=== PATIENT | male | born 1960 | race Caucasian/White ===

== ENCOUNTER → 2020-03-08 | Outpatient (CLI) | payer MEDICARE, OTHER ==
[~2020-03-08] MED LIST: ARMOUR THYROID60 MG PO; COQ-10100 MG PO; ELIQUIS2.5 MG PO; FINASTERIDE5 MG PO; K-DUR10 MEQ PO; LASIX40 MG PO; LOSARTAN POTAS100 MG PO; LYRICA150 MG PO; MIRTAZAPINE15 MG PO; NORCO 10-325 T1 EACH PO; OXYBUTYNIN CHLOR5 MG PO; PERCOCET 10-321 EACH PO; PROGESTERO50 MG/1 ML PO; PROGESTERONE100 MG PO; TIZANIDINE HCL4 MG PO; ZOLOFT50 MG PO
[2020-03-08 10:30] LABS: BASOPHILS % 0.3 % (0.0-1.0); EOSINOPHILS # (AUTO) 0.1 (0.0-0.4); EOSINOPHILS % 0.7 % (0.0-6.0); HEMATOCRIT 39.8 % (38.2-49.6); HEMOGLOBIN 12.4 g/dL (14.0-18.0); LYMPHOCYTES # (AUTO) 0.8 (1.0-3.2); MEAN CORPUSCULAR HEMOGLOBIN 26.5 pg (28-32); MEAN CORPUSCULAR HGB CONC 31.2 g/dL (31-35); MONOCYTES # (AUTO) 0.8 (0.2-0.8); MONOCYTES % 6.5 % (4.4-11.3); NEUTROPHILS # (AUTO) 10.3 (2.1-6.9); NEUTROPHILS % 85.3 % (38.7-80.0); PLATELET COUNT 210 x10e3/uL (140-360); RED BLOOD COUNT 4.68 x10e6/uL (4.3-5.7); RED CELL DISTRIBUTION WIDTH 15.9 % (11.7-14.4)
[2020-03-08 10:46] LABS: ANION GAP 10.2 mmol/L (8-16); BLOOD UREA NITROGEN 11 mg/dL (7-26); BUN/CREATININE RATIO 14 (6-25); CALCIUM 8.4 mg/dL (8.4-10.2); CARBON DIOXIDE 27 mmol/L (22-29); CHLORIDE 107 mmol/L (98-107); CREATININE, SERUM 0.78 mg/dL (0.72-1.25); EST GLOMERULAR FILTRATION RATE > 60 ML/MIN (60-); GLUCOSE 104 mg/dL (74-118); POTASSIUM 4.2 mmol/L (3.5-5.1); SODIUM 140 mmol/L (136-145)
== END ==
LOC: DX 15:56 → EDSTATUS 03-12 07:00
PROVIDERS: ATTEND Urology
DX: U07.1 COVID-19 (principal); Z01.818 Encounter for other preprocedural examination; R33.9 Retention of urine, unspecified
CPT/HCPCS: 36415; 80048; 85025; 93005; U0002

== ENCOUNTER 2020-05-09 09:08 | Observation (INO) | payer MEDICARE, OTHER ==
[~2020-05-09] VITALS: Ht 182.9 cm; Wt 91.6 kg
[~2020-05-09 09:08] MED LIST changes: -ARMOUR THYROID60 MG PO; -COQ-10100 MG PO; -FINASTERIDE5 MG PO; -K-DUR10 MEQ PO; -LASIX40 MG PO; -MIRTAZAPINE15 MG PO; -OXYBUTYNIN CHLOR5 MG PO
[2020-05-09] MEDS ORDERED: PIPERACILLIN/TAZOBAC 3.375 GM VIAL ONE (10:26)
[2020-05-09] MEDS ORDERED: GENTAMICIN 80MG/NS 100 ML 200 ML IV ONE (10:26)
[2020-05-09] MEDS ORDERED: SODIUM CHLORIDE 0.9% 50ML 50 ML ONE (10:27)
[2020-05-09] MEDS ORDERED: FINASTERIDE5 MG PO (10:32)
[2020-05-09] MEDS ORDERED: COQ-10100 MG PO (10:32)
[2020-05-09] MEDS ORDERED: OXYBUTYNIN CHLOR5 MG PO (10:32)
[2020-05-09] MEDS ORDERED: LASIX40 MG PO (10:32)
[2020-05-09] MEDS ORDERED: K-DUR10 MEQ PO (10:32)
[2020-05-09] MEDS ORDERED: MIRTAZAPINE15 MG PO (10:32)
[2020-05-09] MEDS ORDERED: ARMOUR THYROID60 MG PO (10:32)
[2020-05-09 10:47] LABS: BASOPHILS % 0.4 % (0.0-1.0); EOSINOPHILS # (AUTO) 0.2 (0.0-0.4); EOSINOPHILS % 3.1 % (0.0-6.0); HEMATOCRIT 38.9 % (38.2-49.6); HEMOGLOBIN 12.3 g/dL (14.0-18.0); LYMPHOCYTES # (AUTO) 1.3 (1.0-3.2); LYMPHOCYTES % 19.5 % (18.0-39.1); MEAN CORPUSCULAR HEMOGLOBIN 27.1 pg (28-32); MEAN CORPUSCULAR HGB CONC 31.6 g/dL (31-35); MEAN CORPUSCULAR VOLUME 85.7 fL (81-99); MONOCYTES # (AUTO) 0.4 (0.2-0.8); MONOCYTES % 6.3 % (4.4-11.3); NEUTROPHILS # (AUTO) 4.7 (2.1-6.9); NEUTROPHILS % 70.6 % (38.7-80.0); PLATELET COUNT 229 x10e3/uL (140-360); RED BLOOD COUNT 4.54 x10e6/uL (4.3-5.7); RED CELL DISTRIBUTION WIDTH 15.8 % (11.7-14.4)
[2020-05-09] MEDS ORDERED: B&O 60MG R/S 60 MG SUPP PR ONE (11:00)
[2020-05-09] MEDS ORDERED: BUPIVACAINE HCL 0.5% INJ 30 ML VIAL INJ ONE (11:00)
[2020-05-09] MEDS ORDERED: LIDOCAINE 2%/ EPINEPHRINE 20ML MDV ONE (11:00)
[2020-05-09] MEDS ORDERED: IOPAMIDOL 300MG/ML 50ML INFUS..BTL IV ONE (11:01)
[2020-05-09 11:06] LABS: ANION GAP 12.6 mmol/L (8-16); BLOOD UREA NITROGEN 10 mg/dL (7-26); BUN/CREATININE RATIO 15 (6-25); CALCIUM 8.8 mg/dL (8.4-10.2); CARBON DIOXIDE 29 mmol/L (22-29); CHLORIDE 104 mmol/L (98-107); CREATININE, SERUM 0.66 mg/dL (0.72-1.25); EST GLOMERULAR FILTRATION RATE > 60 ML/MIN (60-); GLUCOSE 97 mg/dL (74-118); POTASSIUM 3.6 mmol/L (3.5-5.1); SODIUM 142 mmol/L (136-145)
[2020-05-09] MEDS ORDERED: ONDANSETRON HCL INJ 2MG/ML 2ML 2 MG/ML VIAL ONE (12:42)
[2020-05-09] MEDS ORDERED: ROCURONIUM BROMIDE 10 MG/ML 5ML VIAL IV ONE (12:42)
[2020-05-09] MEDS ORDERED: SEVOFLURANE INHAL SOLN 250 ML PEN BTL ONE (12:42)
[2020-05-09] MEDS ORDERED: PROPOFOL IV EMULSION 10 MG/ML 20 ML VIAL ONE (12:42)
[2020-05-09] MEDS ORDERED: LIDOCAINE HCL 2% LOCAL INJ 5 ML SDV VIAL INJ ONE (12:42)
[2020-05-09] MEDS ORDERED: PHENYLEPHRINE HCL 1% 10 MG/ML VIAL ONE (12:42)
[2020-05-09] MEDS ORDERED: FENTANYL CITRATE/PF 100MCG/2 ML INJ ONE (12:56)
[2020-05-09] MEDS ORDERED: MIDAZOLAM HCL 2 MG/2 ML VIAL ONE (12:56)
[2020-05-09] MEDS ORDERED: ACETAMINOPHEN 325 MG TAB ONE (15:36)
[2020-05-09 17:52] VITALS: BP 118/73
[2020-05-09 17:57] VITALS: BP 118/73
[2020-05-09 20:12] VITALS: BP_SYST 107; BP_SYST 114; BP_DIAS 70; BP_DIAS 82
[2020-05-09 21:00] VITALS: BP 114/70
[2020-05-09] MEDS ORDERED: HYDROMORPHONE 1MG/1ML INJ IV STA (22:47)
[2020-05-09] MEDS ORDERED: OXYCODONE/ACETAMINOPHEN 5-325 1 EACH TABLET PO PRN (23:00)
[2020-05-09] MEDS ORDERED: ACETAMINOPHEN 325 MG TAB PO PRN (23:00)
[2020-05-09] MEDS ORDERED: OXYCODONE HCL IR 5 MG TAB PO PRN (23:15)
[2020-05-10] VITALS (7 sets, daily range): BP systolic 103–129; BP diastolic 67–83
[2020-05-10] MEDS: HYDROMORPHONE 1MG/1ML INJ IV PRN ×3 (03:19→14:04)
[2020-05-10] MEDS: PREGABALIN 50 MG CAP PO SCH ×2 (08:18→16:25)
[2020-05-10] MEDS: OXYCODONE/ACETAMINOPHEN 5-325 1 EACH TABLET PO PRN ×2 (08:19→17:45)
[2020-05-10] MEDS ORDERED: MELATONIN 5 MG TABLET PO PRN (08:30)
[2020-05-10] MEDS ORDERED: BISACODYL 10 MG SUPP PR PRN (08:30)
[2020-05-10] MEDS ORDERED: APIXAB 2.5 MG TABLET PO SCH (09:00)
[2020-05-10] MEDS ORDERED: DOCUSATE SODIUM 100 MG CAP PO SCH (09:00)
[2020-05-10] MEDS ORDERED: THYROID 60 MG TAB PO SCH (09:00)
[2020-05-10] MEDS ORDERED: SERTRALINE HCL 100 MG TAB PO SCH (09:00)
[2020-05-10] MEDS: BISACODYL 10 MG SUPP PR SCH ×2 (09:49→09:52)
[2020-05-10] MEDS: DOCUSATE SODIUM 100 MG CAP PO SCH ×2 (09:49→09:52)
[2020-05-10] MEDS ORDERED: MAGNESIUM HYDROXIDE 30 ML UDC PO ONE (13:30)
[2020-05-10] MEDS ORDERED: Ubidecarenone (Coq-10) 100 MG PO SCH (17:00)
[2020-05-10] MEDS ORDERED: MIRTAZAPINE 15 MG TAB PO SCH (21:00)
[2020-05-11] MEDS ORDERED: PROGESTERONE MICRONIZED 100 MG PO SCH (09:00)
== END 2020-05-10 21:57 ==
LOC: OR 09:08 → PACU V 15:11 → MED/SURG 17:49
PROVIDERS: ADMIT Internal Medicine; ATTEND Internal Medicine
DX: N35.812 Other bulbous urethral stricture, male (principal); N39.0 Urinary tract infection, site not specified; R33.9 Retention of urine, unspecified; Z20.822 Contact with and (suspected) exposure to COVID-19; I10 Essential (primary) hypertension; E78.00 Pure hypercholesterolemia, unspecified; E11.9 Type 2 diabetes mellitus without complications; K76.0 Fatty (change of) liver, not elsewhere classified; T14.8XXS Other injury of unspecified body region, sequela; K21.9 Gastro-esophageal reflux disease without esophagitis; Z98.84 Bariatric surgery status
CPT/HCPCS: 36415 ×2; 51102; 52281; 74420; 80048; 82948 ×2; 85025; 99251; C1758; G0378 ×2; J1170 ×2; J1580; J2001 ×2; J2250; J2370; J2405; J2543; J2704; J3010; Q9967